=== PATIENT | male | born 1950 | race American Indian/Alaskan Native ===

== ENCOUNTER 2017-02-17 05:56 | Day surgery (SDC) | payer MEDICARE, OTHER ==
[2017-02-17] MEDS ORDERED: PEPCID PO NR (06:00)
[2017-02-17] MEDS ORDERED: VERSED IV NR (06:00)
[2017-02-17] MEDS ORDERED: NACL 0.9% 1000 ML 1,000 ML IV SCH (06:00)
[2017-02-17] MEDS ORDERED: NACL BACTERIOSTATIC INFILTRATI ONE (06:03)
--- NOTE | 2017-02-17 06:41 | Anesthesia Consultation ---
Anesthesia Consult and Med Hx Date of service: 02/17/17 - Airway Anesthetic Teeth Evaluation: Good, Bridges ROM Head & Neck: Adequate Mental/Hyoid Distance: Adequate Mallampati Class: Class II Intubation Access Assessment: Probably Good - Pulmonary Exam CTA: Yes - Cardiac Exam Cardiac Exam: RRR - Pre-Operative Health Status ASA Pre-Surgery Classification: ASA3 Proposed Anesthetic Plan: General - Pulmonary Hx Smoking: No Hx Asthma: Yes (INHALERS PRN) Hx Respiratory Symptoms: No SOB: No COPD: No Hx Pneumonia: No Hx Sleep Apnea: Yes (DX SLEEP APNEA WITH CPAP USE.) - Cardiovascular System Hx Hypertension: Yes (X 30 YRS) Hx Coronary Artery Disease: (negative stress test 10/29/12. EF 50-55% from echo 11/13/12) Hx Heart Attack/AMI: No Hx Angina: No Hx Percutaneous Transluminal Coronary Angioplasty (PTCA): No Hx Cardia Arrhythmia: No Hx Pacemaker: No Hx Internal Defibrillator: No Hx Valvular Heart Disease: No Hx Heart Murmur: No Hx Peripheral Vascular Disease: No - Central Nervous System Hx Neuromuscular Disorder: No Hx Seizures: No CVA: No Hx Back Pain: No Hx Psychiatric Problems: No - Gastrointestinal Hx Ulcer: No Hx Gastroesophageal Reflux Disease: No - Endocrine Hx Renal Disease: No Hx Cirrhosis: No Hx Liver Disease: No Hx Insulin Dependent Diabetes: No Hx Non-Insulin Dependent Diabetes: No Hx Thyroid Disease: No - Hematic Hx Anemia: No Hx Sickle Cell Disease: No - Other Systems Hx Alcohol Use: Yes (seldom) Hx Substance Use: No Hx Cancer: Yes (prostate s/p seed implants)
[2017-02-17] MEDS ORDERED: PERCOCET 5/325 PO PRN (06:42)
[2017-02-17] MEDS ORDERED: MORPHINE IV PRN (06:42)
[2017-02-17] MEDS ORDERED: ZOFRAN IV PRN (06:42)
--- NOTE | 2017-02-17 06:42 | Anesthesia Day of Surgery ---
Anesthesia Day of Surgery - Day of Surgery Patient Examined: Yes Patient H&P Reviewed: Yes Patient is NPO: Yes
[2017-02-17] MEDS ORDERED: SUBLIMAZE ONE (07:14)
[2017-02-17] MEDS ORDERED: ROBINUL ONE (07:15)
[2017-02-17] MEDS ORDERED: DIPRIVAN 10 MG/ML IV ONE (07:15)
[2017-02-17] MEDS ORDERED: XYLOCAINE MPF 2% ONE (07:18)
[2017-02-17] MEDS ORDERED: ZOFRAN ONE (07:49)
[2017-02-17] MEDS ORDERED: DECADRON ONE (07:49)
[2017-02-17] MEDS ORDERED: GARAMYCIN ONE (07:58)
[2017-02-17] MEDS ORDERED: ANCEF/STERILE WATER 2 GM/20 ML IV NR (08:00)
[2017-02-17] MEDS ORDERED: WATER FOR IRRIG STERILE IR ONE ×2 (08:01)
[2017-02-17] MEDS ORDERED: NEO SYNEPHRINE/NS Syringe(OR USE) IV ONE (08:09)
--- NOTE | 2017-02-17 08:16 | Short Stay Summary ---
Short Stay Documentation Date of service: 02/17/17 - History H&P: obtained from office - Allergies and Medications Current Medications: Allergies No Known Allergies Allergy (Verified 02/12/17 17:15) Home Medications Medication Instructions Recorded Confirmed Last Taken Type Aspirin [Lo-Dose Aspirin EC] 81 mg PO DAILY 02/12/17 02/17/17 1 Week Ago History ~02/10/17 Fluticasone [Flonase] 1 spray NS QDAY 02/12/17 02/12/17 02/17/17 01:00 History Ipratropium/Albuterol Sulfate 1 spray IH PRN PRN 02/12/17 02/12/17 02/17/17 01: 00 History [Combivent Respimat] Lisinopril [Zestril] 40 mg PO DAILY 02/12/17 02/12/17 02/17/17 01:00 History Loratadine [Claritin] 10 mg PO DAILY 02/12/17 02/17/17 02/16/17 History Multivit-Min/FA/Lycopen/Lutein 1 each PO DAILY 02/12/17 02/17/17 02/16/17 History [Centrum Silver Tablet] Omeprazole Magnesium [PriLOSEC Otc] 20 mg PO PRN PRN 02/12/17 02/17/17 3 Months Ago History ~11/17/16 amLODIPine [Norvasc] 10 mg PO DAILY 02/12/17 02/12/17 02/17/17 01:00 History Active Medications Cefazolin Sodium (Ancef/Sterile Water 2 Gm/20 Ml) 2 gm IV PREOP NR Stop: 02/17/17 10:00 Famotidine (Pepcid) 20 mg PO PREOP NR Stop: 02/17/17 23:59 Last Admin: 02/17/17 06:35 Dose: 20 mg Sodium Chloride (Nacl 0.9% 1000 Ml) 1,000 mls @ 100 mls/hr IV DIRECT SIMON Last Admin: 02/17/17 06:40 Dose: 100 mls/hr Midazolam HCl (Versed) 2 mg IV PREOP NR Stop: 02/17/17 23:59 Last Admin: 02/17/17 06:45 Dose: 2 mg Morphine Sulfate (Morphine) 2 mg IV Q10MIN PRN PRN Reason: Pain, Moderate (4-6) Ondansetron HCl (Zofran) 4 mg IV ONCE PRN PRN Reason: Nausea And Vomiting Oxycodone/Acetaminophen (Percocet 5/325) 1 tab PO ONCE PRN PRN Reason: Pain, Moderate (4-6) - Brief post op/procedure progress note Date of procedure: 02/17/17 Pre-op diagnosis: elevated psa, bph----psa 7 Post-op diagnosis: same Procedure: cysto, rpg, pus 30cc, bx Anesthesia: GETA Surgeon: JASMIN ARRIAGA Estimated blood loss: minimal Pathology: list (prostate cores 12 (several cores on right side - additional)) Specimen disposition: to lab Condition: stable - Hospital course Hospital course: tanja rodarte,post op info on chart (pt should have scripts-disgard if not needed) - Disposition Condition at discharge: Stable Disposition: [id number] TO HOME OR SELFCARE Short Stay Discharge Plan Follow up with: NICHOLAS CORONA MD [Primary Care Provider] - 7 Days
--- NOTE | 2017-02-17 08:20 | Post Anesthesia Evaluation ---
- Post Anesthesia Evaluation Patient Participated: Yes Airway Patent: Yes Stable Respiratory Function: Yes Nausea/Vomiting: No Temp > 96.8F: Yes Pain Manageable: Yes Adequeate Hydration: Yes Anesthesia Complications: No
--- NOTE | 2017-02-17 08:59 | Ultrasound Report ---
ULTRASOUND GUIDANCE INTRAOPERATIVE - TRANSRECTAL: HISTORY: Elevated PSA. Prostate biopsy. COMPARISON: None similar at this institution. FINDINGS: Transrectal ultrasound guidance provided for Dr. Bardales for prostate biopsy. CONCLUSION: Prostate biopsy performed under ultrasound guidance. Thank you for the opportunity to participate in this patient's care.
[2017-02-17 10:26] VITALS: BP 132/87
--- NOTE | 2017-02-17 11:20 | Fluoroscopy Report ---
Retrograde pyelogram: Elevated PSA. The preliminary film demonstrates brachytherapy seeds in the prostate bed. Injection of contrast was made bilaterally into the distal ureters. There is good filling of both ureters and intrarenal collecting systems with no abnormalities identified. There is good drainage bilaterally. The non-distended bladder contains a small amount of contrast with no filling defects. Impression: No urinary tract pathology identified.
--- NOTE | 2017-02-17 15:53 | Operative Report ---
PREOPERATIVE DIAGNOSIS: Elevated PSA 7, status post prosthetic seed placement 22 years ago. POSTOPERATIVE DIAGNOSES: Elevated PSA, status post prosthetic seed placement 22 years ago. PROCEDURE: Cystoscopy, bilateral retrograde pyelograms, saturation biopsy of the prostate. SURGEON: Darrius Bardales M.D. ANESTHESIA: General. ANESTHESIOLOGIST: Dr. Michael Maddox. ESTIMATED BLOOD LOSS: Minimal. FLUIDS: Crystalloid. COMPLICATIONS: No complications. INDICATIONS: This 66-year-old gentleman referred by Dr. Cielo Mejia for evaluation of an elevated PSA, etc and he states he had prostatic seeds placed at [facility] approximately 22 years ago. His PSA has been 6, we have repeated it, it was 7. He presents now for reevaluation. He does have a family history of prostate cancer (his father). DESCRIPTION OF PROCEDURE: The patient was taken to the operative suite, placed in a supine position. After adequate general anesthesia, he was placed in a dorsal lithotomy position, prepped and draped in a sterile fashion. Rectal exam was benign. Pancystourethroscopy was performed with a 22-[place] Storz cystoscope. No urethral abnormalities. His prostate did display some moderate trilobar obstruction. His bladder, no tumors or stones were noted. Both ureteral orifices in normal position. Bilateral retrograde pyelograms were obtained with an 8-[place] Evans catheter and 8 mL of contrast. No filling defects or obstruction. Next, using a transrectal probe sagittal and transverse images were taken. No suspicious lesions; however, the patient was noted to have prosthetic seeds on fluoroscopy as well as ultrasound. Template biopsies were taken. There appeared to be some mild asymmetry with the left side slightly larger and therefore I focused and took several additional cores on the left side. The patient tolerated the procedure well and was extubated and taken to recovery room to go home on [facility] and [place] and follow up in the office. JOB# [id number] LENARD/JEREMIAH
== END 2017-02-17 10:32 | disposition home or self-care (01) ==
LOC: OR 05:56
PROVIDERS: ATTEND Urology
DX: C61 Malignant neoplasm of prostate (principal); N40.1 Benign prostatic hyperplasia with lower urinary tract symptoms; R35.1 Nocturia; Z80.42 Family history of malignant neoplasm of prostate; J45.909 Unspecified asthma, uncomplicated; G47.33 Obstructive sleep apnea (adult) (pediatric); I10 Essential (primary) hypertension
CPT/HCPCS: 52005; 55899; 74420; 76998; 88305; A4217; C1758; J0690; J1100; J1580; J2250; J2370; J2405; J2704; J3010; J7030; Q9967

== ENCOUNTER 2021-02-12 06:00 | Day surgery (SDC) | payer MEDICARE, OTHER ==
[2021-02-07 12:15] LABS: Hematocrit 44.4 % (35.5-45.6); Hemoglobin 14.6 gm/dl (11.8-15.2); Mean Corpuscular HGB Conc 33 % (32-34); Mean Corpuscular Volume 101 fl (84-94); Platelet Count 171 K/mm3 (140-440); Red Cell Distribution Width 14.7 % (13.2-15.2)
[2021-02-07 12:30] LABS: Alanine Aminotransferase 22 units/L (7-56); Albumin 4.3 g/dL (3.9-5); BUN/Creatinine Ratio 11; Blood Urea Nitrogen 13 mg/dL (9-20); Calcium 9.8 mg/dL (8.4-10.2); Hemolysis Index 2
[~2021-02-12 06:00] MED LIST: ACETAMINOPHEN 500 MG TAB PO SCH; GABAPENTIN 100 MG CAP PO SCH; LACTATED RINGERS 1,000 ML IV SCH
[2021-02-12] MEDS ORDERED: BACTERIOSTATIC SODIUM CHLORIDE 0.9% 30 ML VIAL INFILTRATI ONE (06:41)
[2021-02-12] MEDS ORDERED: HYDROmorphone 1 MG/1 ML INJ ONE (07:20)
[2021-02-12] MEDS ORDERED: propofoL 200 MG/20 ML VIAL IV ONE (07:20)
[2021-02-12] MEDS ORDERED: LIDOCAINE MPF (2%) 20 MG/1 ML VIAL 5 ML ONE (07:21)
--- NOTE | 2021-02-12 07:33 | Anesthesia Consultation ---
Anesthesia Consult and Med Hx Date of service: 02/12/21 - Airway Anesthetic Teeth Evaluation: Good, Caps ROM Head & Neck: Adequate Mental/Hyoid Distance: Adequate Mallampati Class: Class III Intubation Access Assessment: Possibly Difficult - Pre-Operative Health Status ASA Pre-Surgery Classification: ASA3 Proposed Anesthetic Plan: General - Pulmonary Hx Smoking: No Hx Asthma: Yes (scheduled maintenance inhalers; no recent rescue inhaler use) Hx Respiratory Symptoms: No Hx Sleep Apnea: Yes (intermittenly compliant with CPAP) - Cardiovascular System Hx Hypertension: Yes (took amlodipine, lisinopril this morning) Hx Heart Attack/AMI: No Hx Percutaneous Transluminal Coronary Angioplasty (PTCA): No Hx Cardia Arrhythmia: No - Central Nervous System CVA: No Hx Back Pain: Yes - Endocrine Hx Renal Disease: No Hx Liver Disease: No Hx Insulin Dependent Diabetes: No Hx Non-Insulin Dependent Diabetes: No Hx Thyroid Disease: No - Other Systems Hx Cancer: Yes (hx prostate ca) Hx Obesity: Yes (BMI 32) - Additional Comments Anesthesia Medical History Comments: No hx anesthetic complications.
[2021-02-12] MEDS ORDERED: ONDANSETRON 4 MG/2 ML INJ IV PRN (07:34)
[2021-02-12] MEDS ORDERED: HYDROmorphone 1 MG/1 ML INJ IV PRN (07:34)
--- NOTE | 2021-02-12 07:34 | Anesthesia Day of Surgery ---
Anesthesia Day of Surgery - Day of Surgery Patient Examined: Yes Patient H&P Reviewed: Yes Patient is NPO: Yes
[2021-02-12] MEDS ORDERED: BUPIVACAINE/PF (0.5%) 5 MG/1 ML 30 ML VIAL INFILTRATI ONE (07:36)
[2021-02-12] MEDS ORDERED: GENTAMICIN 40 MG/ML VIAL 2 ML ONE (07:36)
[2021-02-12] MEDS ORDERED: NEOMY 40 MG/POLYMYXIN B 200,000 UNITS/ML (GU) AMPULE IR ONE ×2 (07:37→08:46)
[2021-02-12] MEDS ORDERED: rifAMPin 600 MG VIAL ONE (07:37)
[2021-02-12] MEDS ORDERED: SODIUM CHLORIDE 0.9% 500 ML 500 ML ONE (07:37)
[2021-02-12] MEDS ORDERED: VANCOMYCIN/NS 1 GM/250 ML 1 GM/250 ML BAG IV NR (08:00)
[2021-02-12] MEDS ORDERED: GENTAMICIN 160 MG in SODIUM CHLORIDE 0.9% 100 ML IV ONE (08:00)
[2021-02-12] MEDS ORDERED: GENTAMICIN/NS 80 MG/100 ML 100 ML IV SCH (08:00)
[2021-02-12] MEDS ORDERED: VANCOMYCIN 1,500 MG in SODIUM CHLORIDE 0.9% 500 ML 500 ML IV ONE (08:00)
[2021-02-12] MEDS ORDERED: SODIUM CHLORIDE 0.9% IRR 1,500 ML BOTTLE IR ONE (08:43)
[2021-02-12] MEDS ORDERED: rifAMPin 600 MG VIAL IV ONE (08:44)
[2021-02-12] MEDS ORDERED: SODIUM CHLORIDE 0.9% 500 ML IVPB IRRIGATION ONE (08:45)
[2021-02-12] MEDS ORDERED: GENTAMICIN 40 MG/ML VIAL 2 ML IV ONE (08:45)
[2021-02-12] MEDS ORDERED: ONDANSETRON 4 MG/2 ML INJ ONE (10:03)
--- NOTE | 2021-02-12 10:03 | Short Stay Summary ---
Short Stay Documentation Date of service: 02/12/21 - History H&P: obtained from office - Allergies and Medications Current Medications: Allergies No Known Allergies Allergy (Verified 02/12/17 17:15) Home Medications Medication Instructions Recorded Confirmed Last Taken Type Aspirin [Lo-Dose Aspirin EC] 81 mg PO DAILY 02/12/17 02/12/21 02/05/21 09:00 History Fluticasone [Flonase] 1 spray NS QDAY 02/12/17 02/12/21 02/12/21 04:00 History Ipratropium/Albuterol Sulfate 1 spray IH PRN PRN 02/12/17 02/12/21 02/12/21 04:00 History [Combivent Respimat] Lisinopril [Zestril] 40 mg PO DAILY 02/12/17 02/12/21 02/11/21 01:00 History Loratadine (Nf) [Claritin] 10 mg PO DAILY 02/12/17 02/12/21 02/11/21 09:00 History Omeprazole Magnesium [PriLOSEC Otc] 20 mg PO PRN PRN 02/12/17 02/12/21 3 Months Ago History ~11/17/16 amLODIPine [Norvasc] 10 mg PO DAILY 02/12/17 02/12/21 02/11/21 01:00 History Active Medications Acetaminophen (Acetaminophen 500 Mg Tab) 1,000 mg PO PREOP SIMON Last Admin: 02/12/21 07:09 Dose: 1,000 mg Documented by: Gabapentin (Gabapentin 100 Mg Cap) 100 mg PO PREOP SIMON Last Admin: 02/12/21 07:09 Dose: 100 mg Documented by: Hydromorphone HCl (Hydromorphone 1 Mg/1 Ml Inj) 0.5 mg IV Q10MIN PRN PRN Reason: Pain , Severe (7-10) Stop: 02/12/21 23:00 Lactated Ringer's (Lactated Ringers) 1,000 mls @ 100 mls/hr IV DIRECT SIMON Stop: 02/12/21 23:59 Last Admin: 02/12/21 07:05 Dose: 100 mls/hr Documented by: Ondansetron HCl (Ondansetron 4 Mg/2 Ml Inj) 4 mg IV ONCE PRN PRN Reason: Nausea And Vomiting Stop: 02/12/21 13:00 - Brief post op/procedure progress note Date of procedure: 02/12/21 Pre-op diagnosis: ED Post-op diagnosis: same Procedure: insertion penile prosthesis Anesthesia: GETA Surgeon: JASMIN ARRIAGA Estimated blood loss: minimal Pathology: none Condition: stable - Hospital course Hospital course: pt has bactrim pain med & post op info on chart - Disposition Condition at discharge: Stable Disposition: 01 HOME / SELF CARE / HOMELESS Short Stay Discharge Plan Follow up with: NICHOLAS CORONA MD [Primary Care Provider] - 7 Days
--- NOTE | 2021-02-12 10:35 | Operative Report ---
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 PROCEDURE: Insertion of inflatable penile prosthesis (Coloplast Titan 24 cm with 1 cm rear tip pharmacy clerk). SURGEON: Darrius Bardales MD STARS SPECIALIST: Luci Cardona. ANESTHESIA: General. ESTIMATED BLOOD LOSS: Minimal. FLUIDS: Crystalloid. COMPLICATIONS: No complications. INDICATIONS: This patient is a 70-year-old gentleman known to our service with a history of prostate cancer treated in [place] years ago. The patient has progressively worsening erectile dysfunction, refractory to medical management. He reviewed our video. We discussed options. He agreed to proceed with insertion of inflatable penile prosthesis. Risks, benefits, complications were explained. DESCRIPTION OF PROCEDURE: The patient was taken to the operative suite, placed in a supine position. After adequate general anesthesia, was prepped and draped in a sterile fashion. Luci Cardona was present throughout the procedure to assist with surgical dissection at the bedside. Cox catheter was placed on the operative field, 60 mL dilute Marcaine was injected into the penis into the right corporal body. No curvature or plaque could be appreciated. Transscrotal incision was made with a Bovie. Sharp dissection was taken down to the corporal bodies, 2-0 Vicryl stay sutures were placed. Corporotomies were made bilateral. A gentle dilation with a measuring tool was performed. Measurements revealed a total length of 25 cm. Therefore, a 24 cm Titan device and 1 cm rear tip extenders were prepped, 125 mL reservoir was placed in the retropubic space via the right external ring. The external ring was widened and prior to placing the reservoir 2-0 Vicryl in a pursestring fashion was used to reduce the size of the ring. I placed the deflated reservoir and then tied the 2-0 Vicryl to reduce the size. A 25 mL of saline was placed in the reservoir without difficulty. The cylinders were . They were prepped and placed into the corporal bodies with the aid of a Austin needle, they seated well. A 2-0 Vicryl running stitch was used to close both corporal bodies. The pump was then connected to the corporal bodies and the reservoir with the aid of the quick click connection system. Internal insufflation was performed. Adequate erection could be appreciated. The pump was secured in the dependent portion of the scrotum with a 2-0 Vicryl pursestring suture. Dartos layer was closed with a 2-0 Vicryl in a running fashion. Skin was closed with 2-0 Vicryl in interrupted fashion. Collodion Xeroform gauze was placed as well as a mummy wrap. The patient was extubated and taken to recovery room. He will go home with Bactrim and [place]. TID: [id number] RECEIPT: [id number] DKC/HUS
[2021-02-12 14:02] VITALS: BP 120/89
== END 2021-02-12 11:40 | disposition home or self-care (01) ==
LOC: OR 06:00
PROVIDERS: ATTEND Urology
DX: N52.01 Erectile dysfunction due to arterial insufficiency (principal); N40.1 Benign prostatic hyperplasia with lower urinary tract symptoms; C61 Malignant neoplasm of prostate; J45.909 Unspecified asthma, uncomplicated; I10 Essential (primary) hypertension; G47.30 Sleep apnea, unspecified; E66.9 Obesity, unspecified; K21.9 Gastro-esophageal reflux disease without esophagitis; Z79.82 Long term (current) use of aspirin; Z79.899 Other long term (current) drug therapy; Z98.890 Other specified postprocedural states; Z68.32 Body mass index [BMI] 32.0-32.9, adult
CPT/HCPCS: 36415; 54405; 80053; 85027; C1813; J1170; J1580; J2405; J2704; J3370; J3490; J7040; J7120; U0003